=== PATIENT | male | born 1960 | race Caucasian/White ===

== ENCOUNTER → 2016-07-25 | Outpatient (CLI) | payer BC ==
--- NOTE | 2016-07-25 10:13 | ECHOF ---
Referral Reason:I10 Htn I77.810 Thoracic arotic estasia MEASUREMENTS -------- HEIGHT: 162.6 cm WEIGHT: 105.7 kg BP: 120/87 RVIDd: 3.3 cm (< 3.3) IVSd: 1.2 cm (0.6 - 1.1) LVIDd: 5.0 cm (3.9 - 5.3) LVPWd: 0.9 cm (0.6 - 1.1) IVSs: 1.4 cm LVIDs: 3.9 cm LVPWs: 1.2 cm LA Diam: 3.8 cm (2.7 - 3.8) LAESV Index (A-L): 24.75 ml/m Ao Diam: 4.1 cm (2.0 - 3.7) AV Cusp: 2.4 cm (1.5 - 2.6) LA Diam: 4.1 cm (2.7 - 3.8) MV EXCURSION: 20.130 mm (> 18.000) MV EF SLOPE: 85 mm/s (70 - 150) EPSS: 0.2 cm MV E Caden: 0.63 m/s MV DecT: 223 ms MV A Caden: 0.64 m/s MV E/A Ratio: 0.99 RAP: 5.00 mmHg RVSP: 19.52 mmHg FINDINGS -------- Sinus rhythm. This was a technically adequate study. There is mild concentric left ventricular hypertrophy. Overall left ventricular systolic function is low-normal with, an EF between 50 - 55 %. The right ventricle is normal in size. Normal LA size by volume 22+/-6 ml/m2. The right atrial size is normal. There is no evidence of aortic regurgitation. Mild mitral annular calcification present. Mild mitral regurgitation is present. Mild tricuspid regurgitation present. There is no evidence of pulmonary hypertension. The right ventricular systolic pressure, as measured by Doppler, is 19.52mmHg. There is no pulmonic regurgitation present. Aortic Root is mildly dilated measures 4.2cm. There is no pericardial effusion. CONCLUSIONS -------- 1. There is mild concentric left ventricular hypertrophy. 2. Overall left ventricular systolic function is low-normal with, an EF between 50 - 55 %. 3. Mild mitral annular calcification present. 4. Mild mitral regurgitation is present. 5. Mild tricuspid regurgitation present. 6. There is no evidence of pulmonary hypertension. 7. The right ventricular systolic pressure, as measured by Doppler, is 19.52mmHg. 8. Aortic Root is mildly dilated measures 4.2cm. BIZTALK CONSULTANT: Janeth Mcmullen RDCS
== END | disposition home or self-care (01) ==
LOC: RADECHMAIN 08:18
PROVIDERS: ATTEND Family Medicine
DX: I34.0 Nonrheumatic mitral (valve) insufficiency (principal); I07.1 Rheumatic tricuspid insufficiency
CPT/HCPCS: 93306

== ENCOUNTER → 2017-03-28 | Outpatient (CLI) | payer BC ==
--- NOTE | 2017-03-28 09:37 | CT ---
EXAMINATION TYPE: CT angio thoracic/abd aorta DATE OF EXAM: 03/28/2017 COMPARISON: NONE HISTORY: 56-year-old male with dilated ascending and abd aneurysm, history of brain aneurysm Scanned by: LJ and CS. TECHNIQUE: Contiguous axial scanning of the chest, abdomen, and pelvis performed without and with IV Contrast, patient injected with 100ml mL of Omnipaque 350. Coronal/sagittal MIP reconstructions perfo rmed. 3-D reconstructions generated on a dedicated independent workstation. CT DLP: 2515 mGycm Automated exposure control for dose reduction was used. FINDINGS: CHEST: Heart is normal size without pericardial effusion. Coronary vessel calcifications are present and are a marker for coronary artery disease. No thoracic lymphadenopathy. Evaluation of the lungs shows mild diffuse bronchial wall thickening that could represent bronchitis or chronic asthma. Mild dependent atelectasis. No consolidation or pleural effusion. ABDOMEN: Small hiatal hernia. Liver mildly enlarged at 18.6 cm craniocaudal with low-attenuation. Gallbladder, left adrenal gland, kidneys, spleen, and pancreas show no gross abnormality. 1.4 cm low-density nodule within the right adrenal gland shows density of 3.3 Hounsfield units sugges tive of a benign adrenal adenoma. No dilated small bowel, free fluid, or free air. Scattered nonenlarged mesenteric lymph nodes. Mild scattered stool. No pericolonic inflammatory change. Pelvis: Moderate circumferential bladder wall thickening. Pelvic phleboliths. Prostate gland measures 4.5 cm wide. No abnormal fluid collection in the pelvis or pelvic lymphadenopathy. Bones: Degenerative changes at the pubic symphysis. Additional degenerative changes lower lumbar spine and m ild endplate spondylosis mid to lower thoracic spine. No osseous destructive process. Vasculature: The aortic root is mildly aneurysmal at 4.0 cm. The proximal ascending aorta is ectatic, measuring 3.9 cm on the noncontrast series and 3.8 cm on the contrast-enhanced series. Mid to upper ascending aorta is borderline ectatic at 3.5 cm. Proximal arch measures 3.5 cm. Distal aortic arch measures 3.1 cm, borderline aneurysmal. Upper descending thoracic aorta borderline aneurysmal 3.0 cm. Mid descending thoracic aorta is ectatic at 2.8 cm. Lower descending thoracic aorta ectatic at 2.8 cm. Mild atherosclerotic calcifications at the origin of both celiac axis and SMA. Mild atherosclerotic calcifications at the origin of the left greater than right renal arteries. Moderate atherosclerotic calcifications at the origin of the ALONSO. Mild atherosclerotic calcifications distal abdominal aorta and common iliac arteries. No evidence for abdominal aortic aneurysm. IMPRESSION: 1. MILD ANEURYSM OF THE AORTIC ROOT (4.0 CM) AND ECTATIC/BORDERLINE ANEURYSMAL PROXIMAL ASCENDING AOR TA (3.9 CM). 2. THE DISTAL ARCH IS BORDERLINE ANEURYSMAL (3.1 CM) AND THE DESCENDING THORACIC AORTA IS EITHER BORD GURJIT ANEURYSMAL OR ECTATIC (MEASURING UP TO 3.0 CM). 3. NO EVIDENCE FOR AAA. 4. 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 5. MODERATE CIRCUMFERENTIAL BLADDER WALL THICKENING COULD REPRESENT CYSTITIS OR CHRONIC BLADDER WALL HYPERTROPHY. CLINICALLY CORRELATE.
== END | disposition home or self-care (01) ==
LOC: RADCTMAIN 07:47
PROVIDERS: ATTEND Internal Medicine Cardiovascular Disease
DX: I71.2 Thoracic aortic aneurysm, without rupture (principal)
CPT/HCPCS: 75635; 71275; Q9967

== ENCOUNTER → 2017-05-14 | Outpatient (CLI) | payer BC ==
[2017-05-14 07:46] VITALS: PULSE 80; RESP 18; TEMP 97.6
[2017-05-14 08:35] VITALS: BP 133/89
[2017-05-14 09:05] LABS: ALT 66 U/L (21-72); AST 32 U/L (17-59); Albumin 3.3 g/dL (3.5-5.0); Alkaline Phosphatase 56 U/L (38-126); Anion Gap 7 mmol/L; Blood Urea Nitrogen 13 mg/dL (9-20); Calcium 9.2 mg/dL (8.4-10.2); Carbon Dioxide 28 mmol/L (22-30); Chloride 106 mmol/L (98-107); Glucose 116 mg/dL (74-99); Potassium 4.1 mmol/L (3.5-5.1); Sodium 141 mmol/L (137-145); Total Bilirubin 0.3 mg/dL (0.2-1.3); Total Protein 6.5 g/dL (6.3-8.2)
[2017-05-17 19:37] LABS: Metanephrine, Free <25 pg/mL (< OR = 57); Normetanephrine, Free 47 pg/mL (< OR = 148); Total, Free (MN + NMN) 47 pg/mL (< OR = 205)
== END | disposition home or self-care (01) ==
LOC: PROCWHC3 07:24
PROVIDERS: ATTEND Internal Medicine Endocrinology, Diabetes & Metabolism
DX: D35.00 Benign neoplasm of unspecified adrenal gland (principal)
CPT/HCPCS: 36415; 80053; 82088; 82384; 83835; 84244; 99211

== ENCOUNTER → 2017-11-27 | Outpatient (CLI) | payer BC ==
[2017-11-27 09:02] LABS: Basophils % (A) 1 %; Eosinophils # (A) 0.3 k/uL (0-0.7); Eosinophils % (A) 6 %; HCT 45.6 % (39.0-53.0); HGB 15.2 gm/dL (13.0-17.5); Lymphocytes # (A) 1.6 k/uL (1.0-4.8); Lymphocytes % (A) 33 %; MCH 29.6 pg (25.0-35.0); MCHC 33.3 g/dL (31.0-37.0); Mean Platelet Volume 6.6; Monocytes # (A) 0.5 k/uL (0-1.0); Monocytes % (A) 10 %; Neutrophils # (A) 2.3 k/uL (1.3-7.7); Neutrophils % (A) 47 %; Platelet Count 241 k/uL (150-450); RBC 5.12 m/uL (4.30-5.90); RDW 13.1 % (11.5-15.5); WBC 4.8 k/uL (3.8-10.6)
== END | disposition home or self-care (01) ==
LOC: LABWHC1 08:14
PROVIDERS: ATTEND Family Medicine
DX: R79.89 Other specified abnormal findings of blood chemistry (principal)
CPT/HCPCS: 36415; 85025

== ENCOUNTER → 2019-01-08 | Outpatient (CLI) | payer BC ==
[2019-01-08 09:09] LABS: HCT 39.9 % (39.0-53.0); HGB 14.7 gm/dL (13.0-17.5); MCH 31.1 pg (25.0-35.0); MCHC 36.9 g/dL (31.0-37.0); MCV 84.4 fL (80.0-100.0); Mean Platelet Volume 5.8; Platelet Count 321 k/uL (150-450); RBC 4.73 m/uL (4.30-5.90); RDW 12.3 % (11.5-15.5); WBC 6.5 k/uL (3.8-10.6)
== END | disposition home or self-care (01) ==
LOC: LABWHC1 08:37
PROVIDERS: ATTEND Family Medicine
DX: D72.819 Decreased white blood cell count, unspecified (principal)
CPT/HCPCS: 36415; 85027

== ENCOUNTER 2019-01-12 12:38 | Emergency (ER) | payer BC ==
[2019-01-12 12:51] VITALS: BP 125/86; PULSE 78; RESP 16; TEMP 97.8
--- NOTE | 2019-01-12 13:06 | ED ---
Skin/Abscess/FB HPI - General Chief complaint: Skin/Abscess/Foreign Body Stated complaint: infection on fingers Time Seen by Provider: 01/12/19 12:57 Source: patient, RN notes reviewed Mode of arrival: ambulatory Limitations: no limitations - History of Present Illness Initial comments: 58-year-old male presents emergency Department with chief complaint of multiple hand, finger infections. Patient states that started while back he states he gets drainage of his finger around the nails. He doesn't that he tried to his nails. Patient states that his been putting Bactroban on the sides. Patient reports no fevers chills no night sweats. - Related Data Home Medications Medication Instructions Recorded Confirmed Hydrochlorothiazide [Hydrodiuril] 25 mg PO DAILY 11/11/13 05/14/17 amLODIPine BESYLATE/BENAZEPRIL 1 each PO DAILY 11/11/13 05/14/17 [Lotrel 10-20 mg Capsule] Ergocalciferol (Vitamin D2) 50,000 unit PO 05/14/17 [Vitamin D2] Rosuvastatin [Crestor] 5 mg PO DAILY 05/14/17 05/14/17 Previous Rx's Medication Instructions Recorded Cephalexin [Keflex] 500 mg PO Q6HR #40 cap 01/12/19 Allergies Allergy/AdvReac Type Severity Reaction Status Date / Time No Known Allergies Allergy Verified 01/12/19 12:51 Review of Systems ROS Statement: Those systems with pertinent positive or pertinent negative responses have been documented in the HPI. ROS Other: All systems not noted in ROS Statement are negative. Past Medical History Past Medical History: Hyperlipidemia, Hypertension Additional Past Medical History / Comment(s): Aneurysm History of Any Multi-Drug Resistant Organisms: None Reported Additional Past Surgical History / Comment(s): Thyroidectomy Past Psychological History: No Psychological Hx Reported Smoking Status: Former smoker Past Alcohol Use History: None Reported Past Drug Use History: None Reported General Exam Limitations: no limitations General appearance: alert, in no apparent distress Head exam: Present: atraumatic, normocephalic, normal inspection Neck exam: Present: normal inspection, full ROM. Absent: tenderness, meningismus, lymphadenopathy Respiratory exam: Present: normal lung sounds bilaterally. Absent: respiratory distress, wheezes, rales, rhonchi, stridor Cardiovascular Exam: Present: regular rate, normal rhythm, normal heart sounds. Absent: systolic murmur, diastolic murmur, rubs, gallop, clicks Extremities exam: Present: full ROM, normal capillary refill, other (Right hand fourth digit there is extensive erythema and swelling around the fourth and fifth digit, nails are bitten back to the bases of the tips of the finger, there is some mild drainage, tenderness over this region there is additionally erythema of the digits in the left hand including the second and first digit). Absent: normal inspection, tenderness Skin exam: Present: warm, dry Course Vital Signs 01/12/19 12:48 Temperature 97.8 F Pulse Rate 78 Respiratory 16 Rate Blood Pressure 125/86 O2 Sat by Pulse 97 Oximetry Medical Decision Making - Medical Decision Making Patient was found to have multiple paronychia as we did discuss proper care, discuss hygiene and not by taking at his nails. Patient was started on Keflex for underlying infection or return for any worsening symptoms. Disposition Clinical Impression: Paronychia of finger of right hand Disposition: HOME SELF-CARE Condition: Stable Instructions (If sedation given, give patient instructions): Paronychia (ED) Additional Instructions: Please return to the Emergency Department if symptoms worsen or any other concerns. Prescriptions: Cephalexin [Keflex] 500 mg PO Q6HR #40 cap Is patient prescribed a controlled substance at d/c from ED?: No Referrals: Margo Santiago MD [Primary Care Provider] - 1-2 days Time of Disposition: 13:06
== END 2019-01-12 13:12 | disposition home or self-care (01) ==
LOC: EC 12:38
DX: L03.011 Cellulitis of right finger (principal); I10 Essential (primary) hypertension; E78.5 Hyperlipidemia, unspecified; Z79.899 Other long term (current) drug therapy; Z87.891 Personal history of nicotine dependence
CPT/HCPCS: 99283

== ENCOUNTER → 2019-10-28 | Outpatient (CLI) | payer BC ==
--- NOTE | 2019-10-28 09:32 | CT ---
EXAMINATION TYPE: CT angio chest DATE OF EXAM: 10/28/2019 COMPARISON: Prior CT 03/28/2017 HISTORY: Follow up known aneurysm CT DLP: 582.9 mGycm Automated exposure control for dose reduction was used. CONTRAST: CTA scan of the thorax is performed with IV Contrast, patient injected with 100 mL of Isovue 370, pul monary embolism protocol. MIP images are created and reviewed. 3D reconstructed images are created on an independent workstation and reviewed. FINDINGS: LUNGS: The lungs are grossly clear, there is no concerning parenchymal mass or nodule identified. T here is no pleural effusion or pneumothorax seen. The tracheobronchial tree is patent. AORTA: Aortic root measures 4.5 cm, likely stable accounting for differences in measurement. Ascendi ng aorta measures 3.9 cm, proximal descending aorta reported 3 cm, at the level of the aortic hiatus the aorta measures 2.7 cm, there is no evident dissection, super aortic branch vessels are patent. MEDIASTINUM: There is satisfactory enhancement of the pulmonary artery and its branches, there is no CT evidence for pulmonary embolism. There are no greater than 1 cm hilar or mediastinal lymph nodes. No pericardial effusion is seen. There are coronary artery calcifications. OTHER: Small hiatal hernia is noted. Patient is post right hemithyroidectomy. IMPRESSION: STABLE AORTIC ANEURYSM.
--- NOTE | 2019-10-28 09:47 | US ---
EXAMINATION TYPE: US duplex aorta DATE OF EXAM: 10/28/2019 COMPARISON: CT 03/28/2017 CLINICAL HISTORY: aortic aneurysm. HTN. High cholesterol. EXAM MEASUREMENTS: Abdominal Aorta: Proximal: 2.3 x 3.1 cm Mid: 2.2 x 2.6 cm Distal: 2.1 x 2.2 cm Bifurcation: Right- 1.4 x 1.2 cm Left- 1.6 x 1.0 cm Grayscale and color Doppler imaging performed. IMPRESSION: No abdominal aortic aneurysm
== END | disposition home or self-care (01) ==
LOC: RADUSMAIN 07:32
PROVIDERS: ATTEND Family Medicine
DX: I71.3 Abdominal aortic aneurysm, ruptured (principal)
CPT/HCPCS: 93979; 71275; Q9967

== ENCOUNTER → 2020-05-26 | Outpatient (CLI) | payer BC ==
[2020-05-26 11:05] LABS: Basophils # (A) 0.05 X 10*3/uL (0.00-0.10); Eosinophils % (A) 7.7 %; HGB 15.5 g/dL (13.0-17.0); Lymphocytes # (A) 1.59 X 10*3/uL (0.90-5.00); Lymphocytes % (A) 30.6 %; MCH 30.5 pg (27.0-32.0); MCHC 34.4 g/dL (32.0-37.0); MCV 88.4 fL (80.0-97.0); Mean Platelet Volume 10.4 fL (9.5-12.2); Monocytes # (A) 0.78 X 10*3/uL (0.20-1.00); Neutrophils # (A) 2.36 X 10*3/uL (1.80-7.70); Neutrophils % (A) 45.5 %; Platelet Count 280 X 10*3/uL (140-440); RBC 5.09 X 10*6/uL (4.40-5.60); RDW 12.4 % (11.5-14.5); WBC 5.19 X 10*3/uL (4.50-10.00)
== END | disposition home or self-care (01) ==
LOC: LABWHC1 07:58
PROVIDERS: ATTEND Family Medicine
DX: D70.9 Neutropenia, unspecified (principal); R79.9 Abnormal finding of blood chemistry, unspecified
CPT/HCPCS: 36415; 85025

== ENCOUNTER 2020-08-07 08:14 | Emergency (ER) | payer BC ==
[2020-08-07 08:18] VITALS: TEMP 98
--- NOTE | 2020-08-07 08:35 | ED ---
General Adult HPI - General Chief complaint: Urogenital Stated complaint: Abd Pain Time Seen by Provider: 08/07/20 08:19 Source: patient, RN notes reviewed Mode of arrival: ambulatory Limitations: no limitations - History of Present Illness Initial comments: Patient is a pleasant 60-year-old male presenting to the emergency Department with lower abdominal discomfort. Onset of symptoms was a week or 2 ago. Discomfort is lower abdomen. Discomfort has been waxing and waning however does remain mild and is never severe. Discomfort is currently 2 or 3/10. Patient also feels some mild swelling of his testicles. No nausea vomiting. No fever. No constipation or diarrhea. No hematuria or dysuria. - Related Data Home Medications Medication Instructions Recorded Confirmed amLODIPine BESYLATE/BENAZEPRIL 1 each PO DAILY 11/11/13 05/14/17 [Lotrel 10-20 mg Capsule] hydroCHLOROthiazide [Hydrodiuril] 25 mg PO DAILY 11/11/13 05/14/17 Ergocalciferol (Vitamin D2) 50,000 unit PO 05/14/17 [Vitamin D2] Rosuvastatin [Crestor] 5 mg PO DAILY 05/14/17 05/14/17 Previous Rx's Medication Instructions Recorded Cephalexin [Keflex] 500 mg PO Q6HR #40 cap 01/12/19 Allergies Allergy/AdvReac Type Severity Reaction Status Date / Time No Known Allergies Allergy Verified 08/07/20 08:15 Review of Systems ROS Statement: Those systems with pertinent positive or pertinent negative responses have been documented in the HPI. ROS Other: All systems not noted in ROS Statement are negative. Constitutional: Denies: fever Eyes: Denies: eye pain ENT: Denies: ear pain Respiratory: Denies: cough Cardiovascular: Denies: chest pain Endocrine: Denies: fatigue Gastrointestinal: Reports: as per HPI, abdominal pain Genitourinary: Reports: as per HPI Musculoskeletal: Denies: back pain Skin: Denies: rash Neurological: Denies: weakness Past Medical History Past Medical History: Hyperlipidemia, Hypertension Additional Past Medical History / Comment(s): Aneurysm History of Any Multi-Drug Resistant Organisms: None Reported Additional Past Surgical History / Comment(s): Thyroidectomy Past Psychological History: No Psychological Hx Reported Smoking Status: Never smoker Past Alcohol Use History: None Reported Past Drug Use History: None Reported General Exam Limitations: no limitations General appearance: alert, in no apparent distress Head exam: Present: normocephalic Eye exam: Present: normal appearance Neck exam: Present: normal inspection Respiratory exam: Present: normal lung sounds bilaterally Cardiovascular Exam: Present: regular rate, normal rhythm GI/Abdominal exam: Present: soft, tenderness (Mild tenderness left of the suprapubic region.). Absent: distended exam: Present: normal inspection. Absent: testicular tenderness, scrotal swelling Extremities exam: Present: normal inspection Neurological exam: Present: alert Psychiatric exam: Present: normal affect, normal mood Skin exam: Present: normal color Course Vital Signs 08/07/20 08:16 Temperature 98.0 F Pulse Rate 79 Respiratory 16 Rate Blood Pressure 164/88 O2 Sat by Pulse 97 Oximetry Medical Decision Making - Medical Decision Making Patient reevaluated and resting comfortably in bed. Patient updated on results and need for follow-up. - Lab Data Result diagrams: 08/07/20 08:43 08/07/20 08:43 Lab Results 08/07/20 08/07/20 08/07/20 Range/Units 08:43 08:43 08:43 WBC 4.8 (3.8-10.6) k/uL RBC 5.33 (4.30-5.90) m/uL Hgb 16.1 (13.0-17.5) gm/dL Hct 46.9 (39.0-53.0) % MCV 88.0 (80.0-100.0) fL MCH 30.3 (25.0-35.0) pg MCHC 34.4 (31.0-37.0) g/dL RDW 13.2 (11.5-15.5) % Plt Count 249 (150-450) k/uL MPV 7.4 Neutrophils % 53 % Lymphocytes % 27 % Monocytes % 9 % Eosinophils % 7 % Basophils % 1 % Neutrophils # 2.5 (1.3-7.7) k/uL Lymphocytes # 1.3 (1.0-4.8) k/uL Monocytes # 0.4 (0-1.0) k/uL Eosinophils # 0.4 (0-0.7) k/uL Basophils # 0.1 (0-0.2) k/uL PT 10.3 (9.0-12.0) sec INR 1.0 (<1.2) APTT 23.1 (22.0-30.0) sec Sodium (137-145) mmol/L Potassium (3.5-5.1) mmol/L Chloride (98-107) mmol/L Carbon Dioxide (22-30) mmol/L Anion Gap mmol/L BUN (9-20) mg/dL Creatinine (0.66-1.25) mg/dL Est GFR (CKD-EPI)AfAm (>60 ml/min/1.73 sqM) Est GFR (CKD-EPI)NonAf (>60 ml/min/1.73 sqM) Glucose (74-99) mg/dL Calcium (8.4-10.2) mg/dL Total Bilirubin (0.2-1.3) mg/dL AST (17-59) U/L ALT (4-49) U/L Alkaline Phosphatase (38-126) U/L Total Protein (6.3-8.2) g/dL Albumin (3.5-5.0) g/dL Amylase (30-110) U/L Lipase (23-300) U/L Urine Color Yellow Urine Appearance Clear (Clear) Urine pH 6.0 (5.0-8.0) Ur Specific [place] 1.017 (1.001-1.035) Urine Protein Negative (Negative) Urine Glucose (UA) Negative (Negative) Urine Ketones Negative (Negative) Urine Blood Negative (Negative) Urine Nitrite Negative (Negative) Urine Bilirubin Negative (Negative) Urine Urobilinogen 2.0 (<2.0) mg/dL Ur Leukocyte Esterase Negative (Negative) 08/07/20 Range/Units 08:43 WBC (3.8-10.6) k/uL RBC (4.30-5.90) m/uL Hgb (13.0-17.5) gm/dL Hct (39.0-53.0) % MCV (80.0-100.0) fL MCH (25.0-35.0) pg MCHC (31.0-37.0) g/dL RDW (11.5-15.5) % Plt Count (150-450) k/uL MPV Neutrophils % % Lymphocytes % % Monocytes % % Eosinophils % % Basophils % % Neutrophils # (1.3-7.7) k/uL Lymphocytes # (1.0-4.8) k/uL Monocytes # (0-1.0) k/uL Eosinophils # (0-0.7) k/uL Basophils # (0-0.2) k/uL PT (9.0-12.0) sec INR (<1.2) APTT (22.0-30.0) sec Sodium 140 (137-145) mmol/L Potassium 4.2 (3.5-5.1) mmol/L Chloride 105 (98-107) mmol/L Carbon Dioxide 28 (22-30) mmol/L Anion Gap 7 mmol/L BUN 17 (9-20) mg/dL Creatinine 1.01 (0.66-1.25) mg/dL Est GFR (CKD-EPI)AfAm >90 (>60 ml/min/1.73 sqM) Est GFR (CKD-EPI)NonAf 80 (>60 ml/min/1.73 sqM) Glucose 159 H (74-99) mg/dL Calcium 9.4 (8.4-10.2) mg/dL Total Bilirubin 0.6 (0.2-1.3) mg/dL AST 42 (17-59) U/L ALT 60 H (4-49) U/L Alkaline Phosphatase 84 (38-126) U/L Total Protein 7.7 (6.3-8.2) g/dL Albumin 4.4 (3.5-5.0) g/dL Amylase 46 (30-110) U/L Lipase 258 (23-300) U/L Urine Color Urine Appearance (Clear) Urine pH (5.0-8.0) Ur Specific [place] (1.001-1.035) Urine Protein (Negative) Urine Glucose (UA) (Negative) Urine Ketones (Negative) Urine Blood (Negative) Urine Nitrite (Negative) Urine Bilirubin (Negative) Urine Urobilinogen (<2.0) mg/dL Ur Leukocyte Esterase (Negative) - Radiology Data Radiology results: report reviewed (Scrotal ultrasound shows epididymal cysts with normal testicles. No torsion. Computed tomography scan of the abdomen pelvis shows no acute abnormality.) Disposition Clinical Impression: Epididymal cyst, Abdominal pain Disposition: HOME SELF-CARE Condition: Stable Instructions (If sedation given, give patient instructions): Abdominal Pain (ED), Scrotal Pain (ED) Additional Instructions: Please follow-up with primary care physician in the next day or 2 for recheck. Consider follow-up with urologist, number provided. Return for increased pain, testicular pain or swelling, redness, fever, vomiting, worsening or changing symptoms or other concerns. Is patient prescribed a controlled substance at d/c from ED?: No Referrals: Margo Santiago MD [Primary Care Provider] - 1-2 days Alen Vidal MD [STAFF PHYSICIAN] - 1-2 days Time of Disposition: 10:48
[2020-08-07 08:57] LABS: Appearance,Urine Clear (Clear); Bilirubin,Urine Negative (Negative); Blood,Urine Negative (Negative); Color,Urine Yellow; Glucose,Urine (UA) Negative (Negative); Ketones,Urine Negative (Negative); Leukocyte Esterase,Urine Negative (Negative); Nitrite,Urine Negative (Negative); Protein,Urine Negative (Negative); Specific Gravity,Urine 1.017 (1.001-1.035)
[2020-08-07 09:03] LABS: Basophils # (A) 0.1 k/uL (0-0.2); Basophils % (A) 1 %; Eosinophils # (A) 0.4 k/uL (0-0.7); Eosinophils % (A) 7 %; HCT 46.9 % (39.0-53.0); HGB 16.1 gm/dL (13.0-17.5); Lymphocytes # (A) 1.3 k/uL (1.0-4.8); Lymphocytes % (A) 27 %; MCH 30.3 pg (25.0-35.0); MCHC 34.4 g/dL (31.0-37.0); Mean Platelet Volume 7.4; Monocytes # (A) 0.4 k/uL (0-1.0); Monocytes % (A) 9 %; Neutrophils # (A) 2.5 k/uL (1.3-7.7); Neutrophils % (A) 53 %; Platelet Count 249 k/uL (150-450); RBC 5.33 m/uL (4.30-5.90); RDW 13.2 % (11.5-15.5); WBC 4.8 k/uL (3.8-10.6)
[2020-08-07 09:10] LABS: Partial Thromboplastin Time 23.1 sec (22.0-30.0); Prothrombin Time 10.3 sec (9.0-12.0)
[2020-08-07 09:11] LABS: ALT 60 U/L (4-49); AST 42 U/L (17-59); African American GFR (CKD) >90 (>60 ml/min/1.73 sqM); Albumin 4.4 g/dL (3.5-5.0); Alkaline Phosphatase 84 U/L (38-126); Amylase 46 U/L (30-110); Anion Gap 7 mmol/L; Blood Urea Nitrogen 17 mg/dL (9-20); Calcium 9.4 mg/dL (8.4-10.2); Carbon Dioxide 28 mmol/L (22-30); Chloride 105 mmol/L (98-107); Glucose 159 mg/dL (74-99); Lipase 258 U/L (23-300); Non-African American GFR(CKD) 80 (>60 ml/min/1.73 sqM); Potassium 4.2 mmol/L (3.5-5.1); Sodium 140 mmol/L (137-145); Total Bilirubin 0.6 mg/dL (0.2-1.3); Total Protein 7.7 g/dL (6.3-8.2)
--- NOTE | 2020-08-07 09:21 | CT ---
EXAMINATION TYPE: CT abdomen pelvis w con DATE OF EXAM: 08/07/2020 COMPARISON: HISTORY: Lt sided groin pain CT DLP: 1712.6 mGycm Automated exposure control for dose reduction was used. TECHNIQUE: Helical acquisition of images was performed from the lung bases through the pelvis. CONTRAST: Performed without Oral Contrast and with IV Contrast, patient injected with 100 mL of Isovue 300. FINDINGS: The lung bases are clear. The gallbladder is normal and there is no wall thickening, pericholecystic fluid, distention or galls tones. There is no biliary or pancreatic duct dilatation. No focal masses are seen within the liver, pancreas, spleen. There are calcifications within the pancreas indicating chronic pancreatitis. There is a small cyst of the adrenal glands. The kidneys excrete contrast promptly and symmetrically and there is no solid renal mass or hydroneph rosis. There is no retroperitoneal adenopathy or hemorrhage in the caliber of the abdominal aorta is normal. The bowel loops are normal in caliber and there is no evidence of dilatation or obstruction. No infla mmatory changes are identified within the mesentery. There is no free intraperitoneal air or fluid. T here is diverticulosis of the colon without CT evidence of diverticulitis. There is no pelvic mass, free fluid, abscess or adenopathy. The osseous structures and soft tissues are unremarkable. IMPRESSION: No acute abnormality within the abdomen or pelvis. There is diverticulosis without CT evidence of div erticulitis. There are calcifications of the pancreas indicating chronic pancreatitis.
--- NOTE | 2020-08-07 10:25 | US ---
EXAMINATION TYPE: US scrotum with doppler. Grayscale and color Doppler Duplex imaging performed of t alpa scrotum. DATE OF EXAM: 08/07/2020 COMPARISON: NONE CLINICAL HISTORY: pain. Edema EXAM MEASUREMENTS: TESTICLES: Right Testicle: 5.7 x 2.9 x 3.6 cm Left Testicle: 5.7 x 3.0 x 3.6 cm EPIDIDYMIS HEAD: Right Epididymis: Multiple epididymal cysts visualized largest 2.1 x 1.1 x 2.6 cm Left Epididymis: Mulitple epididymal cysts visualized largest 1.9 x 1.4 x 1.8 cm. Doppler performed to assess for testicular vascularity; good bilateral color flow and waveforms are s een. There is no evidence of testicular torsion. Presence of hydroceles: no Presence of varicoceles: no IMPRESSION: Multiple large epididymal cysts with normal testicles with no testicular torsion mass.
[2020-08-07 11:08] VITALS: BP 135/87; PULSE 86; RESP 18
== END 2020-08-07 11:01 | disposition home or self-care (01) ==
LOC: EC 08:14
DX: N50.3 Cyst of epididymis (principal); R10.30 Lower abdominal pain, unspecified; I10 Essential (primary) hypertension; E78.5 Hyperlipidemia, unspecified
CPT/HCPCS: 36415; 80053; 82150; 83690; 85025; 85610; 85730; 81003; 93975; 76870; 74177; 99284; Q9967

== ENCOUNTER → 2020-08-27 | Outpatient (CLI) | payer BC ==
[2020-08-27 11:04] LABS: Basophils # (A) 0.04 X 10*3/uL (0.00-0.10); Eosinophils # (A) 0.33 X 10*3/uL (0.04-0.35); Eosinophils % (A) 8.6 %; HCT 42.4 % (39.6-50.0); HGB 14.5 g/dL (13.0-17.0); Lymphocytes # (A) 1.12 X 10*3/uL (0.90-5.00); Lymphocytes % (A) 29.2 %; MCHC 34.2 g/dL (32.0-37.0); MCV 87.6 fL (80.0-97.0); Mean Platelet Volume 10.7 fL (9.5-12.2); Monocytes # (A) 0.56 X 10*3/uL (0.20-1.00); Monocytes % (A) 14.6 %; Neutrophils # (A) 1.78 X 10*3/uL (1.80-7.70); Neutrophils % (A) 46.6 %; Platelet Count 232 X 10*3/uL (140-440); RBC 4.84 X 10*6/uL (4.40-5.60); RDW 12.2 % (11.5-14.5); WBC 3.83 X 10*3/uL (4.50-10.00)
[2020-08-27 12:18] LABS: Gliadin AB IgA, Deaminated NEGATIVE (NEGATIVE); Gliadin AB IgA, Unit 2.6 U/mL; Gliadin AB IgG, Deaminated NEGATIVE (NEGATIVE)
[2020-08-27 12:26] LABS: ALT 52 U/L (10-49); AST 34 U/L (14-35); African American GFR (CKD) 93.7 (60.0-200.0); Albumin/Globulin Ratio 1.72 (1.60-3.17); Alkaline Phosphatase 52 U/L (41-126); C Reactive Protein <0.4 mg/dL (0.0-0.8); Calcium 9.8 mg/dL (8.7-10.3); Carbon Dioxide 28.7 mmol/L (21.6-31.8); Chloride 105 mmol/L (96-109); Globulin 2.5 g/dL (1.6-3.3); Glucose 154 mg/dL (70-110); Non-African American GFR(CKD) 80.9 (60.0-200.0); Potassium 4.6 mmol/L (3.5-5.5); Sodium 140 mmol/L (135-145); Total Bilirubin 0.6 mg/dL (0.3-1.2); Total Protein 6.8 g/dL (6.2-8.2)
[2020-08-27 12:27] LABS: Lipase 77 U/L (14-60)
[2020-08-27 13:31] LABS: IgG Subclass 3 32.1 mg/dL (11.0-85.0)
== END | disposition home or self-care (01) ==
LOC: LABWHC1 07:27
PROVIDERS: ATTEND Internal Medicine Gastroenterology
DX: R10.12 Left upper quadrant pain (principal); R93.3 Abnormal findings on diagnostic imaging of other parts of digestive tract; R94.5 Abnormal results of liver function studies
CPT/HCPCS: 36415; 80053; 82787; 83516; 83690; 84478; 85025; 86038; 86140

== ENCOUNTER → 2020-12-25 | Outpatient (CLI) | payer BC ==
--- NOTE | 2020-12-25 17:41 | MR ---
EXAMINATION TYPE: MR angio head wo con DATE OF EXAM: 12/25/2020 COMPARISON: None HISTORY: F/U to aneurysm repair 2013. MR angiographic images were obtained of the brain with no contrast. There is arterial flow in the distal internal carotid arteries bilaterally. There is arterial flow in the vertebrobasilar artery system. There is arterial flow in the distal vertebral arteries. There is arterial flow in the anterior middle and posterior cerebral arteries. There is bilateral art erial flow in the posterior communicating arteries. The posterior cerebral arteries appear to fill mo stly through the posterior communicating arteries. There is no mass effect. There is no evidence of i ntracranial arterial stenosis. There is a 4 mm aneurysm on the left lateral wall of the supraclinoid right internal carotid artery. IMPRESSION: Right internal carotid artery aneurysm. Comparison with an old exam would be helpful.
== END | disposition home or self-care (01) ==
LOC: RADMRIMAIN 08:26
PROVIDERS: ATTEND Neurological Surgery
DX: I67.1 Cerebral aneurysm, nonruptured (principal)
CPT/HCPCS: 70544

== ENCOUNTER → 2021-06-08 | Outpatient (CLI) | payer BC ==
--- NOTE | 2021-06-08 08:58 | CT ---
EXAMINATION TYPE: CT soft tissue neck wo con DATE OF EXAM: 06/08/2021 HISTORY: mass on posterior neck COMPARISON: None available CT DLP: 636.30 mGycm. Automated Exposure Control for Dose Reduction was Utilized. TECHNIQUE: CT scan of the neck is performed without IV contrast administration. A marker was placed over the area of interest. Axial images are obtained, coronal and sagittal reformatted images are rev iewed. FINDINGS: A fatty lesion is seen at the area of interest along the right side of the back of the neck. It most likely represents a lipoma measuring 18 x 35 x 34 mm. No definite calcification, fluid density, soft tissue density or septation within. It is inseparable from the underlying muscle yet without invasion or infiltration into the muscle. Unremarkable overlying subcutaneous tissue. Nonspecific bilateral palatine tonsils calcifications. Otherwise grossly unremarkable nasopharynx, or opharynx, hypopharynx, larynx and visualized portion of the trachea and esophagus. Nonvisualized righ t thyroid lobe, please correlate with previous right hemithyroidectomy. 2 mm tiny calcification is se en in the superficial portion of the left parotid gland, otherwise symmetrical unremarkable parotid a nd submandibular salivary glands. Arterial atherosclerotic calcifications. No pathologically enlarged lymph nodes in the neck. Density is seen within the left frontal sinus compartment with questionable sequela of previous trauma/interv ention. [place] aneurysmal coiling. Mucosal thickening of the maxillary sinuses, sphenoid si nus and ethmoid air cells. Degenerative changes at C5-6, C6-7 and C7-T1 levels. 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 Other incidental findings as described above.
== END | disposition home or self-care (01) ==
LOC: RADCTMAIN 08:15
PROVIDERS: ATTEND Family Medicine
DX: R22.9 Localized swelling, mass and lump, unspecified (principal)
CPT/HCPCS: 70490

== ENCOUNTER → 2022-03-31 | Outpatient (CLI) | payer BC ==
--- NOTE | 2022-03-31 10:34 | CT ---
EXAMINATION TYPE: CT adrenal glands wo/w con DATE OF EXAM: 03/31/2022 COMPARISON: 08/07/2020 HISTORY: Adenoma. CT DLP: 3.1 mGycm CONTRAST: CT scan of the adrenal glands is performed and without and with IV Contrast, patient injected with 70 ml mL of Isovue 300. FINDINGS: LUNG BASES-: No visible nodule. No infiltrate. LIVER/GB: No calcified gallstones. No space occupying hepatic lesion. Biliary tree is of normal ca liber. PANCREAS: No inflammation. No distinct mass. SPLEEN: No splenic enlargement. No lesion seen. ADRENALS: There is very mild nodular thickening of the left adrenal gland unchanged from 08/07/2020 and felt to reflect hyperplasia or small adenoma. Right adrenal gland also demonstrates a stable small n odule measuring 1.4 cm compatible with adenoma. KIDNEYS/BLADDER: No hydronephrosis. No nephrolithiasis. No distinct renal mass. Urinary bladder g rossly unremarkable. BOWEL: Visualized gastrointestinal tract is of normal caliber. LYMPH NODES: No greater than 1cm abdominal or pelvic lymph nodes are appreciated. AORTA: No significant abnormality. OSSEOUS STRUCTURES: No significant abnormality is seen. OTHER: No significant additional abnormality is seen. IMPRESSION: 1. Small right adrenal adenoma and probable left adrenal glandular hyperplasia.
== END | disposition home or self-care (01) ==
LOC: RADCTMAIN 08:38
PROVIDERS: ATTEND Internal Medicine Endocrinology, Diabetes & Metabolism
DX: D35.01 Benign neoplasm of right adrenal gland (principal)
CPT/HCPCS: 74170; Q9967 ×2

== ENCOUNTER 2022-06-26 21:27 | Emergency (ER) | payer BC ==
[2022-06-26 21:34] VITALS: BP 117/76; PULSE 86; RESP 18; TEMP 97.8
[2022-06-26] MEDS ORDERED: SULFAMETHOX-TMP 800-160MG 1 EACH TAB PO STA (21:46)
[2022-06-26] MEDS ORDERED: DIPH,PERTUS(ACELL)TETVAC-LF 0.5 ML VIAL IM ONE (21:46)
[2022-06-26] MEDS ORDERED: CEPHALEXIN 500 MG CAP PO STA (21:46)
--- NOTE | 2022-06-26 21:50 | ED ---
Extremity Problem HPI - General Chief complaint: Extremity Problem,Nontraumatic Stated complaint: finger injury Time Seen by Provider: 06/26/22 21:39 Source: patient Mode of arrival: ambulatory Limitations: no limitations - History of Present Illness Initial comments: This 62-year-old male presents with complaint of left index finger swelling and redness. He states that he cut it on a piece of metal yesterday. He has a puncture wound on the mid dorsal aspect left index finger. He is unsure of his last tetanus. He denies any fevers or chills. He states that the erythema and swelling has progressively worsened over the past one day. There is only minimal pain. The redness has spread proximally. No other complaints or modifying factors. - Related Data Home Medications Medication Instructions Recorded Confirmed amLODIPine BESYLATE/BENAZEPRIL 1 each PO DAILY 11/11/13 05/14/17 [Lotrel 10-20 mg Capsule] hydroCHLOROthiazide [Hydrodiuril] 25 mg PO DAILY 11/11/13 05/14/17 Ergocalciferol (Vitamin D2) 50,000 unit PO 05/14/17 [Vitamin D2] Rosuvastatin [Crestor] 5 mg PO DAILY 05/14/17 05/14/17 Previous Rx's Medication Instructions Recorded Cephalexin [Keflex] 500 mg PO Q6HR #40 cap 01/12/19 Cephalexin [Keflex] 500 mg PO TID #30 cap 06/26/22 Sulfamethox-Tmp 800-160Mg [Bactrim 1 tab PO Q12HR #20 tab 06/26/22 DS 800-160 mg] Allergies Allergy/AdvReac Type Severity Reaction Status Date / Time No Known Allergies Allergy Verified 06/26/22 21:34 Review of Systems ROS Statement: Those systems with pertinent positive or pertinent negative responses have been documented in the HPI. ROS Other: All systems not noted in ROS Statement are negative. Past Medical History Past Medical History: Hyperlipidemia, Hypertension Additional Past Medical History / Comment(s): Aneurysm History of Any Multi-Drug Resistant Organisms: None Reported Additional Past Surgical History / Comment(s): Thyroidectomy Past Psychological History: No Psychological Hx Reported Smoking Status: Never smoker Past Alcohol Use History: None Reported Past Drug Use History: None Reported General Exam Limitations: no limitations General appearance: alert, in no apparent distress Extremities exam: Present: full ROM, tenderness (There is some mild tenderness noted to the left index finger. There is some minimal swelling noted to the finger as well.), normal capillary refill, other (Strength is intact. There is no significant pain with passive extension of the left index finger.). Absent: joint swelling Neurological exam: Present: alert, oriented X3. Absent: motor sensory deficit Psychiatric exam: Present: normal affect, normal mood Skin exam: Present: intact (This is associated erythema diffusely to the left index finger with mild swelling and erythema extending proximally into the dorsal hand.), other Course Vital Signs 06/26/22 21:30 Temperature 97.8 F Pulse Rate 86 Respiratory 18 Rate Blood Pressure 117/76 O2 Sat by Pulse 95 Oximetry Medical Decision Making - Medical Decision Making Was pt. sent in by a medical professional or institution ([facility], [facility], urgent care, hospital, or [place] [facility] care facility...) When possible be specific @ -[No] Did you speak to anyone other than the patient for history (EMS, parent, family, police, friend...)? What history was obtained from this source @ -The patient's is present and does also contribute to the history. Did you review nursing and triage notes (agree or disagree)? Why? @ -[I reviewed and agree with nursing and triage notes] Were old charts reviewed (outside hosp., previous admission, EMS record, old EKG, old radiological studies, urgent care reports/EKG's, [place] [facility] facility records)? Report findings @ -[No old charts were reviewed] Differential Diagnosis (chest pain, altered mental status, abdominal pain women, abdominal pain men, vaginal bleeding, weakness, fever, dyspnea, syncope, headache, dizziness, GI bleed, back pain, seizure, CVA, palpatations, mental health, musculoskeletal)? @ -Cellulitis, tenosynovitis, abscess EKG interpreted by me (3pts min.). @ -[As above] X-rays interpreted by me (1pt min.). @ -[None done] CT interpreted by me (1pt min.). @ -[None done] U/S interpreted by me (1pt. min.). @ -[None done] What testing was considered but not performed or refused? (CT, X-rays, U/S, labs)? Why? @ -[None] What meds were considered but not given or refused? Why? @ -[None] Did you discuss the management of the patient with other professionals (pro fessionals i.e. , PA, [facility], lab, RT, psych nurse, social worker masters, track worker, teacher, correction officer penitentiary, case sealer)? Give summary @ -[No] Was smoking cessation discussed for >3mins.? @ -[No] Was critical care preformed (if so, how long)? @ -[No] Were there social determinants of health that impacted care today? How? (Homelessness, low income, unemployed, alcoholism, drug addiction, transportation, low edu. Level, literacy, decrease access to med. care, detention, rehab)? @ -[No] Was there de-escalation of care discussed even if they declined (Discuss DNR or withdrawal of care, Hospice)? DNR status @ -[No] What co-morbidities impacted this encounter? (DM, HTN, Smoking, COPD, CAD, Cancer, CVA, ARF, Chemo, Hep., AIDS, mental health diagnosis, sleep apnea, morbid obesity)? @ -[None] Was patient admitted / discharged? Hospital course, mention meds given and route, prescriptions, significant lab abnormalities, going to OR and other pertinent info. @ -The patient was seen and examined. It appears as though he does have a cellulitis. His tetanus is updated. He receives Bactrim as well as Keflex in the ER as most pharmacies are currently closed. It is felt as though he stable for discharge home. Return parameters are discussed. There is no evidence of extensor or flexor tenosynovitis. Bactrim and Keflex are prescribed. Undiagnosed new problem with uncertain prognosis? @ -[No] Drug Therapy requiring intensive monitoring for toxicity (Heparin, Nitro, Insulin, Cardizem)? @ -[No] Were any procedures done? @ -[No] Diagnosis/symptom? @ -Cellulitis of left index finger, puncture wound Acute, or Chronic, or Acute on Chronic? @ -Acute Uncomplicated (without systemic symptoms) or Complicated (systemic symptoms)? @ -Uncomplicated Side effects of treatment? @ -[No] Exacerbation, Progression, or Severe Exacerbation? @ -[No] Poses a threat to life or bodily function? How? (Chest pain, [place], [place], pneumonia, PE, COPD, DKA, ARF, appy, cholecystitis, CVA, Diverticulitis, Homicidal, Suicidal, threat to staff... and all critical care pts) @ -[No] Disposition Clinical Impression: Cellulitis, Puncture wound Disposition: HOME SELF-CARE Condition: Good Instructions (If sedation given, give patient instructions): Cellulitis (ED) Additional Instructions: Social may take Tylenol and/or Motrin if needed for pain or fever. Prescriptions: Sulfamethox-Tmp 800-160Mg [Bactrim DS 800-160 mg] 1 tab PO Q12HR #20 tab Cephalexin [Keflex] 500 mg PO TID #30 cap Is patient prescribed a controlled substance at d/c from ED?: No Referrals: Mello Santiago MD [REFERRING] - 1-2 days Time of Disposition: 21:50
== END 2022-06-26 22:23 | disposition home or self-care (01) ==
LOC: EC 21:27
DX: S61.231A Puncture wound without foreign body of left index finger without damage to nail, initial encounter (principal); L03.012 Cellulitis of left finger; I10 Essential (primary) hypertension; E78.5 Hyperlipidemia, unspecified; Z23 Encounter for immunization; Z79.899 Other long term (current) drug therapy; W26.8XXA Contact with other sharp object(s), not elsewhere classified, initial encounter
CPT/HCPCS: 90471; 90715; 99283

== ENCOUNTER → 2023-04-14 | Outpatient (CLI) | payer BC | END | disposition home or self-care (01) | LOC: LABWHC1 10:41 | PROVIDERS: ATTEND Family Medicine | DX: Z53.9 Procedure and treatment not carried out, unspecified reason (principal) ==

== ENCOUNTER → 2023-04-17 | Outpatient (CLI) | payer BC ==
[2023-04-17 10:46] LABS: Basophils # (A) 0.06 X 10*3/uL (0.00-0.10); Basophils % (A) 1.3 %; Eosinophils # (A) 0.29 X 10*3/uL (0.04-0.35); Eosinophils % (A) 6.5 %; HCT 42.4 % (39.6-50.0); HGB 15.1 g/dL (13.0-17.0); Immature Grans, Automated 0 %; Lymphocytes # (A) 1.62 X 10*3/uL (0.90-5.00); Lymphocytes % (A) 36.2 %; MCH 30.3 pg (27.0-32.0); MCHC 35.6 g/dL (32.0-37.0); MCV 85.1 FL (80.0-97.0); Monocytes # (A) 0.58 X 10*3/uL (0.20-1.00); NRBC Per 100 WBC 0 X 10*3/uL (0.00-0.01); Neutrophils # (A) 1.92 X 10*3/uL (1.80-7.70); Platelet Count 258 X 10*3/uL (140-440); RBC 4.98 X 10*6/uL (4.40-5.60); RDW 12.8 % (11.5-14.5); WBC 4.47 X 10*3/uL (4.50-10.00)
[2023-04-17 11:15] LABS: ALT 49 U/L (10-49); AST 31 U/L (14-35); Albumin 4.2 g/dL (3.8-4.9); Alkaline Phosphatase 55 U/L (41-126); BUN/Creat Ratio 13.45 Ratio (12.00-20.00); Blood Urea Nitrogen 14.8 mg/dL (9.0-27.0); Calcium 9.8 mg/dL (8.7-10.3); Carbon Dioxide 24.9 mmol/L (21.6-31.8); Chloride 103 mmol/L (96-109); Chol/HDL Ratio 3.21 Ratio; Glucose 129 mg/dL (70-110); LDL Cholesterol,Calculated 83.3 mg/dL (0.0-131.0); Prostate Specific Antigen 2.36 ng/mL (0.000-4.500); Sodium 140 mmol/L (135-145); Total Bilirubin 0.5 mg/dL (0.3-1.2); Total Protein 7.2 g/dL (6.2-8.2)
== END | disposition home or self-care (01) ==
LOC: LABWHC1 07:26
PROVIDERS: ATTEND Family Medicine
DX: R73.03 Prediabetes (principal); Z51.81 Encounter for therapeutic drug level monitoring; R53.83 Other fatigue; N40.0 Benign prostatic hyperplasia without lower urinary tract symptoms
CPT/HCPCS: 36415; 80053; 80061; 83036; 84153; 84443; 85025

== ENCOUNTER → 2023-11-03 | Outpatient (CLI) | payer BC ==
[2023-11-03 13:16] LABS: Basophils # (A) 0.05 X 10*3/uL (0.00-0.10); Basophils % (A) 1.2 %; Eosinophils # (A) 0.42 X 10*3/uL (0.04-0.35); Eosinophils % (A) 9.9 %; HCT 44.4 % (39.6-50.0); HGB 15.4 g/dL (13.0-17.0); Lymphocytes # (A) 1.25 X 10*3/uL (0.90-5.00); Lymphocytes % (A) 29.6 %; MCH 30.3 pg (27.0-32.0); MCHC 34.7 g/dL (32.0-37.0); MCV 87.4 FL (80.0-97.0); Mean Platelet Volume 10.5 FL (9.5-12.2); Monocytes # (A) 0.53 X 10*3/uL (0.20-1.00); Monocytes % (A) 12.5 %; NRBC Per 100 WBC 0 X 10*3/uL (0.00-0.01); Neutrophils # (A) 1.97 X 10*3/uL (1.80-7.70); Neutrophils % (A) 46.6 %; Platelet Count 253 X 10*3/uL (140-440); RBC 5.08 X 10*6/uL (4.40-5.60); RDW 12.5 % (11.5-14.5); WBC 4.23 X 10*3/uL (4.50-10.00)
[2023-11-03 13:36] LABS: ALT 59 U/L (10-49); AST 34 U/L (14-35); Albumin 4.3 g/dL (3.8-4.9); Albumin/Globulin Ratio 1.59 Ratio (1.60-3.17); Alkaline Phosphatase 59 U/L (41-126); Calcium 9.6 mg/dL (8.7-10.3); Carbon Dioxide 27.3 mmol/L (21.6-31.8); Chloride 102 mmol/L (96-109); Chol/HDL Ratio 2.82 Ratio; Creatine Kinase 84 U/L (35-257); Globulin 2.7 g/dL (1.6-3.3); Glucose 141 mg/dL (70-110); LDL Cholesterol,Calculated 74.1 mg/dL (0.0-131.0); Magnesium 2.1 mg/dL (1.5-2.4); Potassium 4.4 mmol/L (3.5-5.5); Prostate Specific Antigen 2.53 ng/mL (0.000-4.500); Sodium 141 mmol/L (135-145); Total Bilirubin 0.4 mg/dL (0.3-1.2); VLDL Calculation 18.22 mg/dL (5.00-40.00)
== END | disposition home or self-care (01) ==
LOC: LABWHC1 08:13
PROVIDERS: ATTEND Family Medicine
DX: Z12.5 Encounter for screening for malignant neoplasm of prostate (principal); I10 Essential (primary) hypertension; E78.5 Hyperlipidemia, unspecified; R53.83 Other fatigue; Z79.899 Other long term (current) drug therapy
CPT/HCPCS: 36415; 80053; 80061; 82550; 83735; 84153; 84443; 85025

== ENCOUNTER → 2024-02-05 | Outpatient (CLI) | payer BC ==
--- NOTE | 2024-02-05 08:29 | US ---
EXAMINATION TYPE: US liver DATE OF EXAM: 02/05/2024 COMPARISON: CT 2020 CLINICAL INDICATION: Male, 63 years old with history of R94.5 Elevated LFT'S; TECHNIQUE: Grayscale and color Doppler imaging of the right upper quadrant was performed. FINDINGS: EXAM MEASUREMENTS: Liver Length: 18.0 cm Gallbladder Wall: 0.2 cm CBD: 0.5 cm Right Kidney: 11.9 x 5.5 x 6.1 cm Pancreas: visualized portions wnl, limited by overlying midline bowel gas Liver: enlarged, increased attenuation, decreased visualization of vessels suggestive of fatty infil trate Gallbladder: 0.4cm hyperechoic focus along posterior wall - possible polyp Evidence for sonographic Mabry's sign: no CBD: visualized portions wnl, limited by overlying bowel gas Right Kidney: wnl Borderline enlarged liver with diffuse increased attenuation. No surface nodularity identified. No gr oss evidence of intrahepatic mass. Visualized portions of the pancreas are within normal limits. Nons hadowing hyperechoic focus along the posterior wall of the gallbladder. No wall thickening or surroun ding fluid. Negative sonographic Mabry sign. The visualized portions of the common bile duct are wit hin normal limits. Right kidney demonstrates no hydronephrosis, solid mass or shadowing calculi. IMPRESSION: 1. Borderline hepatomegaly with diffuse fatty infiltration. No focal lesion identified. 2. A 0.4 cm suggested gallbladder polyp. Recommend follow-up ultrasound in 6 months. [facility], , 02/05/2024 8:27 AM
== END | disposition home or self-care (01) ==
LOC: RADUSWWP 07:55
PROVIDERS: ATTEND Family Medicine
DX: R94.5 Abnormal results of liver function studies (principal)
CPT/HCPCS: 76705

== ENCOUNTER → 2024-07-10 | Outpatient (CLI) | payer BC ==
--- NOTE | 2024-07-10 08:42 | US ---
EXAMINATION TYPE: US gallbladder DATE OF EXAM: 07/10/2024 COMPARISON: Ultrasound/CT CLINICAL INDICATION: Male, 64 years old with history of K82.8 OTHER SPECIFIED DISEASES OF GALLBLADDER K82.8 OTHER SPE; Hx HTN and pre DM; Patient denies any signs, symptoms, or relevant history TECHNIQUE: Grayscale and color Doppler imaging of the right upper quadrant was performed. FINDINGS: EXAM MEASUREMENTS: Liver Length: 18.3 cm Gallbladder Wall: 0.2 cm CBD: 0.3 cm Right Kidney: 13.2 x 5.7 x 5.8 cm [employer] NOTES: Pancreas: Tail obscured by overlying bowel gas Liver: Focal fatty sparing seen adjacent to Gallbladder Gallbladder: Multiple ?Polyps seen Evidence for sonographic Mabry's sign: No CBD: wnl Right Kidney: wnl IMPRESSION: 1. No evidence for acute process. 2. Hepatic steatosis with focal fatty sparing. [facility], , 07/10/2024 8:39 AM
== END | disposition home or self-care (01) ==
LOC: RADUSWWP 08:13
PROVIDERS: ATTEND Family Medicine
DX: K76.0 Fatty (change of) liver, not elsewhere classified (principal); K82.8 Other specified diseases of gallbladder
CPT/HCPCS: 76705